=== PATIENT | female | born 1960 | race Caucasian/White ===

== ENCOUNTER 2017-08-16 03:05 | Emergency (ER) | END 2017-08-16 05:00 | disposition home or self-care (01) ==

== ENCOUNTER 2017-09-25 06:52 | Emergency (ER) | END 2017-09-25 07:32 | disposition home or self-care (01) ==

== ENCOUNTER 2017-09-28 02:36 | Emergency (ER) | END 2017-09-28 06:05 | disposition home or self-care (01) ==

== ENCOUNTER 2017-12-25 03:14 | Emergency (ER) | END 2017-12-25 04:27 | disposition home or self-care (01) ==

== ENCOUNTER 2018-06-15 19:16 | Emergency (ER) | payer OTHER ==
[~2018-06-15] VITALS: Ht 165.1 cm; Wt 69.0 kg
[~2018-06-15 19:16] MED LIST: BUSP10TA2 PO; CEPH-443 PO; CEPH500C PO; FLUO40CA10 PO; HYDR-4011 PO; LISI-471 PO; METH750T93 PO; NAPR-688 PO; OXYC-279 PO
[2018-06-15 19:20] VITALS: BP 158/80; PULSE 100; RESP 18; Ht 165.1 cm; Wt 69.0 kg
[2018-06-15] MEDS ORDERED: CEPH-443 PO (23:17)
[2018-06-15] MEDS ORDERED: PHEN-538 PO (23:17)
--- NOTE | 2018-06-15 23:19 | ERD ---
ER Documentation Chief Complaint Chief Complaint painful urination x 2 days HPI This 58-year-old female presents with dysuria for the last 2 days. She is confined to wheelchair due to severe bilateral hip osteoarthritis. She wears a diaper. She denies fevers, vomiting, abdominal pain or flank pain. She denies any vaginal bleeding or discharge. ROS All systems reviewed and are negative except as per history of present illness. Medications Home Meds Active Scripts Phenazopyridine Hcl* (Pyridium*) 200 Mg Tab, 200 MG PO TID PRN for URINARY PAIN, #6 TAB Prov:VALE ATKINS MD 06/15/18 Cephalexin* (Keflex*) 500 Mg Capsule, 500 MG PO QID for 5 Days, CAP Prov:VALE ATKINS MD 06/15/18 Cephalexin* (Cephalexin*) 500 Mg Capsule, 500 MG PO Q6, #40 CAP Prov:ZACK AVILA MD 09/28/17 Hydrocodone/Acetaminophen ([place] 5-325 Tablet) 1 Each Tablet, 1 TAB PO Q6H PRN for PAIN, #7 TAB Prov:MARIELA PEARSON PA-C 09/25/17 Cephalexin* (Keflex*) 500 Mg Capsule, 500 MG PO QID for 5 Days, CAP Prov:JEFERSON JOHNSON DO 08/12/17 Naproxen* (Naproxen*) 500 Mg Tablet, 500 MG PO BID PRN for PAIN, #14 TAB Prov:JEFERSON JOHNSON DO 08/12/17 Methocarbamol* (Robaxin*) 750 Mg Tablet, 750 MG PO Q6H PRN for MUSCLE SPASMS, #20 TAB Prov:JEFERSON JOHNSON DO 08/12/17 Oxycodone HCl/Acetaminophen (Percocet 5-325 mg Tablet) 1 Each Tablet, 1 EACH PO Q6, #14 TAB Prov:JEFERSON JOHNSON DO 08/12/17 Reported Medications Fluoxetine Hcl* (Prozac*) 40 Mg Capsule, 60 MG PO DAILY, CAP 03/19/16 Buspirone Hcl* (Buspirone Hcl*) 10 Mg Tab, 10 MG PO TID, TAB 03/19/16 Lisinopril* (Lisinopril*) 20 Mg Tablet, 20 MG PO DAILY, #30 TAB 03/19/16 Allergies Allergies: Coded Allergies: No Known Allergy (Unverified , 12/25/17) PMhx/Soc History of Surgery: Yes ( right ankle surg. for torn ligament, Cervical kryogenics) Anesthesia Reaction: No Hx Neurological Disorder: No Hx Respiratory Disorders: No Hx Cardiac Disorders: Yes (High blood pressure) Hx Psychiatric Problems: Yes (Depression and anxiety) Hx Miscellaneous Medical Probl: Yes (anxiety) Hx Alcohol Use: No Hx Substance Use: No Hx Tobacco Use: No FmHx Family History: No diabetes, No coronary disease, No other Physical Exam Vitals Vital Signs Date Temp Pulse Resp B/P (MAP) Pulse Ox O2 O2 Flow FiO2 Time Delivery Rate 06/15/18 98.0 100 18 158/80 96 19:20 (106) Physical Exam Const: No acute distress Head: Atraumatic Eyes: Normal Conjunctiva ENT: Normal External Ears, Nose and Mouth. Neck: Full range of motion. No meningismus. Resp: Clear to auscultation bilaterally Cardio: Regular rate and rhythm, no murmurs Abd: Soft, non tender, non distended. Normal bowel sounds Skin: No petechiae or rashes Back: No midline or flank tenderness Ext: No cyanosis, or edema Neur: Awake and alert Psych: Normal Mood and Affect Results 24 hrs Laboratory Tests Test 06/15/18 22:43 Bedside Urine pH (LAB) 6.0 Bedside Urine Protein (LAB) Negative Bedside Urine Glucose (UA) Negative Bedside Urine Ketones (LAB) Negative Bedside Urine Blood Trace-intact Bedside Urine Nitrite (LAB) Negative Bedside Urine Leukocyte Esterase (L Negative Procedures/MDM Urine shows trace blood on dip but was sent for culture. Pelvic exam with brando carlone shows some mild irritation around the vaginal area but no induration, streaking, significant swelling no abdominal pain. Exam is limited by patient unable to open legs due to osteoarthritis. Patient will be covered empirically with Keflex and Pyridium await culture. She has no signs of abdominal pain, is SIRS criteria, additional complications. Patient will be given Diflucan as well given she is chronically in a diaper with inability to presumably clean introitus. The patient was stable with no new complaints during the ER course. Clinically, there is no current evidence to suggest meningitis, sepsis, acute abdomen, pneumonia, stroke, acute coronary syndrome, pulmonary embolism, aortic dissection or any other emergent condition appearing to require further evaluation or hospitalization. Patient counseled regarding my diagnostic impression and care plan. Prior to discharge all questions answered. Pt agrees with treatment plan and understands strict return precautions. Pt is instructed to follow up with primary care provider within 24-48 hours. Precautionary instructions provided including instructions to return to the ER if not improving or for any worsening or changing symptoms or concerns. Departure Diagnosis: Primary Impression: Genitourinary symptoms Condition: Stable Patient Instructions: Urinary Tract Infections in Women, Dysuria, Uncertain Cause (Adult) Referrals: [facility] (PCP) Additional Instructions: We will treat for infection given symptoms. Urine culture should be back in 3-5 days. Recheck for fevers, vomiting, new worsening symptoms with primary care doctor. We will treat for yeast infection as well. VALE ATKINS MD Jun 15, 2018 23:19
[2018-06-15] MEDS ORDERED: ACETAMINOPHEN 325 MG TAB PO ONE (23:30)
[2018-06-15] MEDS ORDERED: PHENAZOPYRIDINE 100 MG TAB PO ONE (23:30)
[2018-06-15] MEDS ORDERED: CEPHALEXIN 500 MG CAP PO ONE (23:30)
== END 2018-06-15 23:50 | disposition home or self-care (01) ==
LOC: FTE 19:16
DX: R30.9 Painful micturition, unspecified (principal)
CPT/HCPCS: 81003; 87086; Z7502; Z7610; 99284